=== PATIENT | male | born 1980 | race Caucasian/White ===

== ENCOUNTER → 2017-05-24 | Day surgery (SDC) | payer OTHER ==
[~2017-05-24] MED LIST: CYCL5TAB PO; LIDOCAINE HCL 1% 50 ML VIAL ONE; MIDAZOLAM HCL 2 MG/2 ML VIAL ONE; PROPOFOL 500 MG/50 ML BTL IV ONE; TRAM50 PO; TRIAMCINOLONE ACETONIDE 40 MG/ML VIAL ONE; Z.0.NO CURRENT MEDS
--- NOTE | 2017-05-24 15:59 | TN ---
cc: SWATHI OCASIO DATE OF OPERATION May 24, 2017 PREOPERATIVE DIAGNOSIS Left hip arthralgia, arthritis, arthrogryposis (hip stiffness). POSTOPERATIVE DIAGNOSIS Left hip arthralgia, arthritis, arthrogryposis (hip stiffness). PROCEDURE Left hip manipulation, intra-articular steroid injection, fluoroscopic guidance of needle under anesthesia. SURGEON Tiki Ocasio MD. ASSESSMENT Staff. SPECIMEN None. ESTIMATED BLOOD LOSS None. COMPLICATIONS None. ANESTHESIA TIVA. CONDITION Stable. PLAN OF ACTIVITY As per orders. PROCEDURE The patient was brought in the operating room and had satisfactory TIVA anesthesia by the department of anesthesia. Left hip and lower extremity was prepped and draped in usual sterile manner. 18 gauge spinal needle was introduced into the left hip joint. The hip was injected with 5 cc of 1% plain lidocaine and 1 cc of Kenalog 40. Needle was withdrawn. Band-Aid placed over the injection site. The hip was manipulated under anesthesia. Flexion 120 degrees, abduction 45 degrees with good rotation. The patient tolerated the procedure well and arrived in recovery room in stable and satisfactory condition. X-RAY Left hip one view AP shows status post left hip manipulation. No obvious fracture, dislocation, subluxation. Satisfactory placement 18 gauge spinal needle into the left hip joint. MD DAVIE Schneider/RENATO /3:14 PM /3:48 PM
== END | disposition home or self-care (01) ==
LOC: ESDC 13:06
PROVIDERS: ATTEND Orthopaedic Surgery Orthopaedic Surgery of the Spine
DX: M25.552 Pain in left hip (principal); M16.12 Unilateral primary osteoarthritis, left hip; Q68.8 Other specified congenital musculoskeletal deformities
CPT/HCPCS: 01200; 27275; 73501; 76000; J2250; J3010; J3301